=== PATIENT | male | born 1970 | race Caucasian/White ===

== ENCOUNTER 2016-08-03 13:19 | Inpatient (IN) ==
[2016-08-03] MEDS ORDERED: NS 1,000 ML IV PRN (13:24)
[2016-08-03 13:58] LABS: BASO% 0.7 % (0.0-0.8); EOS% 2.8 % (0.0-10.0); HEMATOCRIT 22.2 % (42.0-52.0); IMM GRAN# 0.03 X1000 (0.0-0.04); IMM GRAN% 0.4 % (0.0-0.5); LYMPH# 1.87 X1000 (1.2-3.4); MANUAL DIFF NEEDED? NO; MCV 70.5 FL (81-99); MONO% 8.4 % (1.7-9.3); MPV 10.6 FL (7.4-10.4); NEUT% 61.7 % (42.2-75.2); PLT 388 X1000 (130-400); RBC 3.15 XMIL (4.7-6.1)
[2016-08-03 14:09] LABS: AGAP 12; ALKALINE PHOSPHATASE 88 U/L (32-122); BUN 16 mg/dL (8-22); CALCIUM 8.9 mg/dL (8.8-10.2); CHLORIDE 100 mmol/L (98-107); COSMO 274; GOT 18 U/L (10-34); GPT 14 U/L (10-44); POTASSIUM 3.7 mmol/L (3.5-5.1); SODIUM 136 mmol/L (136-145); TCO2 24 mmol/L (25-35); TOTAL BILIRUBIN < 0.15 mg/dL (0.20-1.00); TOTAL PROTEIN 7.3 g/dL (6.3-8.3)
--- NOTE | 2016-08-03 14:19 | PROVIDER DOCUMENTATION ---
HPI-Abdominal Pain/GI Problem - General Chief Complaint: Return/Recheck Stated Complaint: ABNORMAL LAB VALUES Time Seen by Provider: 08/03/16 13:38 Source: patient, family Allergies/Adverse Reactions: Patient Allergies Allergy/AdvReac Type Severity Reaction Status Date / Time morphine AdvReac VOMITING Verified 07/31/16 15:08 Home Medications: Home Medication List Medication Instructions Recorded Confirmed Last Taken Type Dextroamphetamine/Amphetamine 30 mg PO BID 07/31/16 07/31/16 08/02/16 History [Adderall 30 mg Tablet] Escitalopram [Lexapro] 20 mg PO DAILY 07/31/16 07/31/16 08/02/16 History Pantoprazole Sodium 40 mg PO DAILY 07/31/16 07/31/16 08/02/16 History Sucralfate [Sucralfate] 1 gm PO DAILY 07/31/16 07/31/16 08/02/16 History Sumatriptan Succinate [Sumatriptan 100 mg PO PRN PRN 07/31/16 07/31/16 08/02/16 History Succinate] Eszopiclone [Lunesta] 1 tab PO PRN 08/03/16 08/03/16 08/01/16 History Lorazepam [Ativan] 1 tab PO TID PRN 08/03/16 08/03/16 08/03/16 History Pramipexole Di-HCl [Mirapex ER] 1 tab PO DAILY 08/03/16 08/03/16 08/02/16 History Tadalafil [Cialis] 1 tab PO DAILY 08/03/16 08/03/16 08/02/16 History Tamsulosin [Flomax] 1 tab PO DAILY 08/03/16 08/03/16 08/02/16 History - History of Present Illness-ABD Nature of Presenting Problems: 46 year old WM presents with c/o weakness/fatigue/shortness of breath with fatigue for 1 week. pt reports intermittent rectal bleeding with straining only , intermittently for over a year. pt reports he was evaluated by his PMD for this and has follow up scheduled with Dr. Holt this week, however, they will not see him until he has had transfusion. Pt was evaluated in the ED on for same, refused admission. pt denies abd/rectal pain. he reports he has not had blood in his stools for 3 weeks. he reports 3 weeks ago he was straining very hard and "bleed alot" for 2 days. Abdominal Pain Onset Location: denies: RUQ, LUQ, RLQ, LLQ, epigastric, periumbilical, suprapubic, generalized abdomen, flank, unknown, other Pain Radiation: denies: no radiation, RUQ, LUQ, RLQ, LLQ, epigastric, periumbilical, flank, groin, scapula, shoulder, chest, back, other Quality of Pain: reports: none Review of Systems - Adult - REVIEW OF SYSTEMS - ADULT Constitutional: reports: see HPI, fatique. denies: chills, fever Eyes: reports: no symptoms reported. denies: discharge, blurred vision, double vision, redness Ears, Nose, Mouth & Throat: reports: no symptoms reported. denies: ear discharge, ear pain, nose pain, loose teeth, throat pain, throat swelling Cardiovascular: reports: no symptoms reported. denies: chest pain, palpitations , syncope Respiratory: reports: no symptoms reported. denies: chronic cough, cough, shortness of breath, wheezing Gastrointestinal: reports: see HPI, rectal bleeding. denies: abdominal pain, hematemesis, constipation, diarrhea, difficulty swallowing, frequent heartburn, nausea, poor appetite, vomiting Genitourinary: reports: no symptoms reported. denies: dysuria, hematuria, urgency Musculoskeletal: reports: no symptoms reported. denies: bone pain, joint pain, joint swelling Integumentary: reports: no symptoms reported. denies: hives, itching, skin sores/ulcer Neurological: reports: see HPI, dizziness/vertigo. denies: ataxia Psychiatric: reports: no symptoms reported Endocrine: reports: no symptoms reported. denies: cold intolerance, heat intolerance Hematologic/Lymphatic: reports: see HPI, low blood count Allergic/Immunologic: reports: no symptoms reported. denies: frequent infections All Other Systems: Reviewed and Negative Past History - Adult - PAST MEDICAL HISTORY-ADULT Review of Records: reports: Old Records Reviewed, Nursing Assessment Review, Medications Reviewed, Social history reviewed & non-contributory. Major Childhood Illnesses: reports: denies history Cardiovascular: reports: denies history Respiratory: reports: denies history Gastrointestinal: reports: GERD Obstetrical/Gynecological: reports: denies history Genitourinary: reports: denies history Musculoskeletal: reports: denies history Neurological: reports: denies history Endocrine/Immune: reports: denies history Other Conditions: reports: denies history - IMMUNIZATION STATUS Childhood Immunizations: See Nurse Assessment Flu Vaccine: See Nurse Assessment - FAMILY HISTORY Family History: reviewed, not pertinent Physical Exam-General - PHYSICAL EXAM-ADULT Initial Vital Signs Reviewed: Yes - CONSTITUTIONAL General Appearance: appears well, alert, no apparent distress. negative: mild distress, moderate distress, severe distress, lethargic, slow to respond - EYES Eyes: pale conjunctivae. negative: pink conjunctivae, photophobia, sclera injected, scleral icterus, subconjunctival hemorrhage - HEAD, EARS, NOSE, MOUTH & THROAT HENMT: normocephalic/atraumatic, moist mucous membranes, normal ENT inspection, TMs normal, pharynx normal - NECK Neck: non-tender, full range of motion, supple, normal inspection. negative: C- spine tenderness, limited range of motion, tender lateral, tender midline - RESPIRATORY Respiratory: chest non-tender, lungs clear, normal breath sounds, no pleuratic chest pain, no respiratory distress, no accessory muscle use. negative: respiratory distress, decreased breath sounds, accessory muscle use, crackles, rales, rhonchi, stridor, wheezing - CARDIOVASCULAR Cardiovascular: normal peripheral pulses, regular rate, rhythm, tachycardia - GASTROINTESTINAL (ABDOMEN) Abdominal Exam: normal bowel sounds, non tender, soft, no organomegaly, no pulsatile mass. negative: distended, guarding, rigid, tenderness, hernia, spleenomegaly - GENITOURINARY Rectal Exam: normal exam, normal rectal tone, hemorrhoids. negative: black stool, blood streaked stool, decreased tone, mass, prostate enlarged/nodule, tenderness Hemoccult Exam: heme negative stool - MUSCULOSKELETAL Back Exam: normal inspection, no CVA tenderness, no vertebral tenderness. negative: CVA tenderness, decreased range of motion, swelling, vertebral tenderness Extremity: normal range of motion, non-tender, normal gait, normal inspection, no pedal edema, no calf tenderness, normal capillary refill Peripheral Pulses: radial (R): 3+, radial (L): 3+ - SKIN Integumentary: normal turgor, warm/dry, pallor. negative: normal color - NEUROLOGIC Neurologic: grossly normal, no motor/sensory deficits - PSYCHIATRIC Psych/Mental Status: normal mood/affect, normal thought content, normal thought process, oriented x 3 Progress - PLAN OF CARE/RESULTS Progress/Plan/Lab Results: Vital Signs - 8 hr 08/03/16 13:20 Temperature 97.8 F Pulse Rate 122 H Respiratory Rate 18 Blood Pressure 129/75 O2 Sat by Pulse Oximetry 97 Laboratory Results - last 24 hr 08/03/16 08/03/16 13:35 13:35 WBC 7.18 RBC 3.15 L Hgb 6.0 L Hct 22.2 L MCV 70.5 L MCH 19.0 L MCHC 27.0 L RDW Std Deviation 14.8 H Plt Count 388 MPV 10.6 H Immature Gran % (Auto) 0.4 Neut % (Auto) 61.7 Lymph % (Auto) 26.0 [place] % (Auto) 8.4 Eos % (Auto) 2.8 Baso % (Auto) 0.7 Immature Gran # (Auto) 0.03 Neut # (Auto) 4.43 Lymph # (Auto) 1.87 [place] # (Auto) 0.60 H Eos # (Auto) 0.20 Baso # (Auto) 0.05 Sodium 136 Potassium 3.7 Chloride 100 Carbon Dioxide 24 L Anion Gap 12 BUN 16 Creatinine 0.9 Estimated GFR/1.73 m2 > 60 BUN/Creatinine Ratio 18 Glucose 107 H Calculated Osmolality 274 Calcium 8.9 Total Bilirubin < 0.15 L AST 18 ALT 14 Alkaline Phosphatase 88 Total Protein 7.3 Albumin 4.0 Globulin 3.0 Albumin/Globulin Ratio 1.0 Orders Category Date Time Status Orthostatic Vital Signs NOW Care 08/03/16 13:40 Active Saline Loc DIRECTED Care 08/03/16 13:24 Active Transfuse .Give-Transfuse Care 08/03/16 14:12 Ordered FLAT/UPRIGHT ABD/1 VIEW CHEST [RAD] Stat Exams 08/03/16 13:41 Taken CBC WITH ELECTRONIC DIFF [HEME] Stat Lab 08/03/16 13:35 Completed COMPREHENSIVE METABOLIC PANEL [CHEM] Stat Lab 08/03/16 13:35 Completed OCCULT BLOOD NON-FECES PL Stat Lab 08/03/16 13:24 Uncollected OCCULT BLOOD SCREEN STOOL PL Stat Lab 08/03/16 13:24 Uncollected PRBC [LRPC (RED CELLS)] [BBK] Stat Lab 08/03/16 14:13 Ordered PROTIME WITH INR PL [COAG] Stat Lab 08/03/16 13:[address] [COAG] Stat Lab 08/03/16 13:35 Received UA NIMS W/REFLEX CULT PL [URINALYSIS] Stat Lab 08/03/16 13:40 Ordered 0.9% Sodium Chloride Inj [Ns] 1,000 ml Med 08/03/16 13:24 Active IV 125 mls/hr EKG [EKG] Stat Ther 08/03/16 13:40 Ordered Reviewed labs, radiology, H&P with Dr. Teague, agrees with plan of care/ treatment. Laboratory Tests 08/03/16 08/03/16 08/03/16 13:35 13:35 13:35 WBC 7.18 RBC 3.15 L Hgb 6.0 L Hct 22.2 L MCV 70.5 L MCH 19.0 L MCHC 27.0 L RDW Std Deviation 14.8 H Plt Count 388 MPV 10.6 H Immature Gran % (Auto) 0.4 Neut % (Auto) 61.7 Lymph % (Auto) 26.0 [place] % (Auto) 8.4 Eos % (Auto) 2.8 Baso % (Auto) 0.7 Immature Gran # (Auto) 0.03 Neut # (Auto) 4.43 Lymph # (Auto) 1.87 [place] # (Auto) 0.60 H Eos # (Auto) 0.20 Baso # (Auto) 0.05 PT 13.5 INR 1.00 APTT (Factor Assay) 31.4 Sodium 136 Potassium 3.7 Chloride 100 Carbon Dioxide 24 L Anion Gap 12 BUN 16 Creatinine 0.9 Estimated GFR/1.73 m2 > 60 BUN/Creatinine Ratio 18 Glucose 107 H Calculated Osmolality 274 Calcium 8.9 Total Bilirubin < 0.15 L AST 18 ALT 14 Alkaline Phosphatase 88 Total Protein 7.3 Albumin 4.0 Globulin 3.0 Albumin/Globulin Ratio 1.0 Urine Color Urine Clarity Urine pH Ur Specific [place] Urine Protein Urine Ketones Urine Blood Urine Nitrite Urine Bilirubin Urine Urobilinogen Urine WBC Urine Glucose Stool Occult Blood 08/03/16 08/03/16 14:25 14:25 WBC RBC Hgb Hct MCV MCH MCHC RDW Std Deviation Plt Count MPV Immature Gran % (Auto) Neut % (Auto) Lymph % (Auto) [place] % (Auto) Eos % (Auto) Baso % (Auto) Immature Gran # (Auto) Neut # (Auto) Lymph # (Auto) [place] # (Auto) Eos # (Auto) Baso # (Auto) PT INR APTT (Factor Assay) Sodium Potassium Chloride Carbon Dioxide Anion Gap BUN Creatinine Estimated GFR/1.73 m2 BUN/Creatinine Ratio Glucose Calculated Osmolality Calcium Total Bilirubin AST ALT Alkaline Phosphatase Total Protein Albumin Globulin Albumin/Globulin Ratio Urine Color YELLOW Urine Clarity CLEAR Urine pH 6.5 Ur Specific [place] 1.015 Urine Protein TRACE A Urine Ketones TRACE Urine Blood NEGATIVE Urine Nitrite NEGATIVE Urine Bilirubin NEGATIVE Urine Urobilinogen NORMAL Urine WBC 1+ A Urine Glucose NEGATIVE Stool Occult Blood NEGATIVE Orders Category Date Time Status Orthostatic Vital Signs NOW Care 08/03/16 13:40 Active Saline Loc DIRECTED Care 08/03/16 13:24 Active Transfuse .Give-Transfuse Care 08/03/16 14:12 Active FLAT/UPRIGHT ABD/1 VIEW CHEST [RAD] Stat Exams 08/03/16 13:41 Completed CBC WITH ELECTRONIC DIFF [HEME] Stat Lab 08/03/16 13:35 Completed COMPREHENSIVE METABOLIC PANEL [CHEM] Stat Lab 08/03/16 13:35 Completed OCCULT BLOOD NON-FECES PL Stat Lab 08/03/16 14:29 Ordered OCCULT BLOOD SCREEN STOOL PL Stat Lab 08/03/16 14:25 Completed PRBC [LRPC (RED CELLS)] [BBK] Stat Lab 08/03/16 13:[address] Received [address]IME WITH INR PL [COAG] Stat Lab 08/03/16 13:[address] [COAG] Stat Lab 08/03/16 13:35 Completed TYPE & SCREEN [BBK] Stat Lab 08/03/16 13:35 Received UA NIMS W/REFLEX CULT PL [URINALYSIS] Stat Lab 08/03/16 14:25 Results 0.9% Sodium Chloride Inj [Ns] 1,000 ml Med 08/03/16 13:24 Active IV 125 mls/hr EKG [EKG] Stat Ther 08/03/16 13:40 Ordered Vital Signs - 24 hr 08/03/16 13:20 Temperature 97.8 F Pulse Rate 122 H Respiratory Rate 18 Blood Pressure 129/75 O2 Sat by Pulse Oximetry 97 Laboratory Tests 08/03/16 08/03/16 08/03/16 13:35 13:35 13:35 WBC 7.18 RBC 3.15 L Hgb 6.0 L Hct 22.2 L MCV 70.5 L MCH 19.0 L MCHC 27.0 L RDW Std Deviation 14.8 H Plt Count 388 MPV 10.6 H Immature Gran % (Auto) 0.4 Neut % (Auto) 61.7 Lymph % (Auto) 26.0 [place] % (Auto) 8.4 Eos % (Auto) 2.8 Baso % (Auto) 0.7 Immature Gran # (Auto) 0.03 Neut # (Auto) 4.43 Lymph # (Auto) 1.87 [place] # (Auto) 0.60 H Eos # (Auto) 0.20 Baso # (Auto) 0.05 PT 13.5 INR 1.00 APTT (Factor Assay) 31.4 Sodium 136 Potassium 3.7 Chloride 100 Carbon Dioxide 24 L Anion Gap 12 BUN 16 Creatinine 0.9 Estimated GFR/1.73 m2 > 60 BUN/Creatinine Ratio 18 Glucose 107 H Calculated Osmolality 274 Calcium 8.9 Total Bilirubin < 0.15 L AST 18 ALT 14 Alkaline Phosphatase 88 Total Protein 7.3 Albumin 4.0 Globulin 3.0 Albumin/Globulin Ratio 1.0 Urine Color Urine Clarity Urine pH Ur Specific [place] Urine Protein Urine Ketones Urine Blood Urine Nitrite Urine Bilirubin Urine Urobilinogen Urine WBC Urine Glucose Stool Occult Blood Blood Type Crossmatch 08/03/16 08/03/16 08/03/16 13:35 14:25 14:25 WBC RBC Hgb Hct MCV MCH MCHC RDW Std Deviation Plt Count MPV Immature Gran % (Auto) Neut % (Auto) Lymph % (Auto) [place] % (Auto) Eos % (Auto) Baso % (Auto) Immature Gran # (Auto) Neut # (Auto) Lymph # (Auto) [place] # (Auto) Eos # (Auto) Baso # (Auto) PT INR APTT (Factor Assay) Sodium Potassium Chloride Carbon Dioxide Anion Gap BUN Creatinine Estimated GFR/1.73 m2 BUN/Creatinine Ratio Glucose Calculated Osmolality Calcium Total Bilirubin AST ALT Alkaline Phosphatase Total Protein Albumin Globulin Albumin/Globulin Ratio Urine Color YELLOW Urine Clarity CLEAR Urine pH 6.5 Ur Specific [place] 1.015 Urine Protein TRACE A Urine Ketones TRACE Urine Blood NEGATIVE Urine Nitrite NEGATIVE Urine Bilirubin NEGATIVE Urine Urobilinogen NORMAL Urine WBC 1+ A Urine Glucose NEGATIVE Stool Occult Blood NEGATIVE Blood Type B POSITIVE Crossmatch See Detail Orders Category Date Time Status Admit - [facility] Routine AdmDCTranf 08/03/16 15:21 Ordered Call Admitting on Arrival AT ADMISSION Care 08/03/16 15:22 Active Orthostatic Vital Signs NOW Care 08/03/16 13:40 Active Saline Loc DIRECTED Care 08/03/16 13:24 Active Telemetry Placement ORDERED Care 08/03/16 15:22 Active Transfuse .Give-Transfuse Care 08/03/16 14:12 Active FLAT/UPRIGHT ABD/1 VIEW CHEST [RAD] Stat Exams 08/03/16 13:41 Completed CBC WITH ELECTRONIC DIFF [HEME] Stat Lab 08/03/16 13:35 Completed COMPREHENSIVE METABOLIC PANEL [CHEM] Stat Lab 08/03/16 13:35 Completed OCCULT BLOOD NON-FECES PL Stat Lab 08/03/16 14:29 Ordered OCCULT BLOOD SCREEN STOOL PL Stat Lab 08/03/16 14:25 Completed PRBC [LRPC (RED CELLS)] [BBK] Stat Lab 08/03/16 13:[address] WITH INR [address] [COAG] Stat Lab 08/03/16 13:[address] [COAG] Stat Lab 08/03/16 13:35 Completed TYPE & SCREEN [BBK] Stat Lab 08/03/16 13:35 Results UA NIMS W/REFLEX CULT PL [URINALYSIS] Stat Lab 08/03/16 14:25 Results 0.9% Sodium Chloride Inj [Ns] 1,000 ml Med 08/03/16 15:21 Ordered IV 100 mls/hr 0.9% Sodium Chloride Inj [Ns] 1,000 ml Med 08/03/16 13:24 Active IV 125 mls/hr Telemetry [OM.EQ] Routine Oth 08/03/16 15:21 Active EKG [EKG] Stat Ther 08/03/16 13:40 Ordered Transfer/Admit Order [TRANSFER] Routine Transfer 08/03/16 15:22 Ordered Vital Signs - 24 hr 08/03/16 13:20 Temperature 97.8 F Pulse Rate 122 H Respiratory Rate 18 Blood Pressure 129/75 O2 Sat by Pulse Oximetry 97 Vital Signs - 24 hr 08/03/16 13:20 08/03/16 16:15 Temperature 97.8 F 98.2 F Pulse Rate 122 H 102 H Respiratory Rate 18 20 Blood Pressure 129/75 111/84 O2 Sat by Pulse Oximetry 97 99 Result Diagrams: 08/03/16 13:35 08/03/16 13:35 - XRAY 1 XRAY Study: Chest, Abdomen Impression: Normal (no definite acute abnormality. per Dr. Osman) - CONSULTS/PCP/HOSPITALIST Notification #1 *Consult/PCP/Hospitalist*: Dr. Robbins Time Discussed: 15:21 Reason/Comments: GIB/Anemia Consult Disposition: Admit Departure - Departure Date of Disposition Decision: 08/03/16 Time of Disposition Decision: 15:25 DIAGNOSIS: Anemia Qualifiers: Anemia type: iron deficiency Iron deficiency anemia type: chronic blood loss Qualified Code(s): D50.0 - Iron deficiency anemia secondary to blood loss ( chronic) GIB (gastrointestinal bleeding) Qualifiers: GI bleed type/associated pathology: unspecified gastrointestinal hemorrhage type Qualified Code(s): K92.2 - Gastrointestinal hemorrhage, unspecified Disposition: ADMITTED INPATIENT 09 Certified Medical Emergency: Emergent Condition: Stable - Critical Care Note This patient required my direct & personal management of CC.: No Attestation - Physician/ LUCIE Attestation Patient care was provided by Advanced Practice Provider:: Yes Advanced Practice Provider:: Sonu Atkins Advanced Practice Provider documentation review:: The Mid-level provider documentation, treatment plan and medical decision making was reviewed by the physician who agrees with all treatment and medical decision making by the P.
[2016-08-03 14:20] LABS: PROTIME 13.5 Seconds (12.1-15.5)
[2016-08-03 14:21] LABS: PTT PL 31.4 Seconds (22.6-43.9)
--- NOTE | 2016-08-03 14:24 | Diag Imaging Result Doc PS360 ---
EXAM: FLAT/UPRIGHT ABD/1 VIEW CHEST HISTORY: GIB TECHNIQUE: Three views COMPARISON: None. FINDINGS: The lungs are well expanded. No pneumonia. Cardiomegaly. No free air beneath the diaphragm. No bowel obstruction. No organomegaly. There is been prior surgery to the lower lumbar spine. No abnormal calcifications. IMPRESSION: No definite acute abnormality. Electronically signed by Seamus Osman 08/03/2016 2:22 PM
[2016-08-03 14:31] LABS: URINE CULTURE PL NEEDED? NO
[2016-08-03 14:43] LABS: BILIRUBIN URINE NEGATIVE (NEGATIVE); BLOOD URINE NEGATIVE (NEGATIVE); CLARITY CLEAR (CLEAR); COLOR YELLOW; GLUCOSE URINE NEGATIVE (NEGATIVE); LEUKOCYTES URINE 1+ (NEGATIVE); NITRITE URINE NEGATIVE (NEGATIVE); PH URINE 6.5; PROTEIN URINE TRACE mg/dL (NEGATIVE); SP GRAVITY URINE 1.015; UROBILINOGEN URINE NORMAL
[2016-08-03 14:46] LABS: OCCULT BLOOD 1 NEGATIVE (NEGATIVE)
--- NOTE | 2016-08-03 15:08 | ED EKG INTERP ---
This chart was entered by Shima Arguello Scribe, acting as scribe for Martin Teague MD. EKG Interpretation - EKG Time of EKG reading by physician:: 14:30 EKG Read and Signed by:: Martin Teague EKG Interpretation (*Must complete 3 of following elements*): Normal Rate: 99 Rhythm: normal sinus rhythm Comments: normal ECG This chart was documented by the indicated scribe, (Shima Arguello Scribe) and accurately reflects the services I performed and decisions made by caHo W. Larry, MD, as attested by the provider's signature.
[2016-08-03] MEDS ORDERED: NS 1,000 ML IV ONE (15:21)
[2016-08-03 15:24] LABS: URINE EPITHELIAL CELLS <10 /HPF (<10); URINE SOURCE CLEAN CATCH; URINE WBC <10 /HPF (<10)
--- NOTE | 2016-08-03 16:06 | EKG Report ---
Test Performed on : 08/03/2016 2:30:25 PM Test Reason : CP Blood Pressure : / mmHG Vent. Rate : 099 BPM Atrial Rate : 099 BPM P-R Int : 132 ms QRS Dur : 082 ms QT Int : 344 ms P-R-T Axes : 061 -06 031 degrees QTc Int : 441 ms Normal sinus rhythm. Normal ECG No previous ECGs available Unconfirmed Result
[2016-08-03] MEDS ORDERED: ATIVAN PO PRN (19:04)
[2016-08-03] MEDS ORDERED: LUNESTA PO PRN (19:04)
[2016-08-03] MEDS ORDERED: TYLENOL PO ONE (20:59)
[2016-08-03] MEDS ORDERED: VICON-C PO SCH (21:00)
[2016-08-03] MEDS ORDERED: PATIENT'S OWN MED PO SCH (21:00)
[2016-08-03] MEDS ORDERED: FERROUS SULFATE PO SCH (21:00)
[2016-08-03] MEDS ORDERED: LEXAPRO PO SCH (21:00)
[2016-08-03] MEDS ORDERED: FLOMAX PO SCH (21:00)
[2016-08-03] MEDS ORDERED: BENADRYL PO ONE (21:03)
[2016-08-03] MEDS: ADDERALL PO SCH (21:29)
--- NOTE | 2016-08-03 21:45 | HISTORY AND PHYSICAL ---
CHIEF COMPLAINT: Weakness, fatigue, shortness of breath. HISTORY OF PRESENT ILLNESS: This is a 46-year-old male who presented to the emergency room complaining of weakness, fatigue, shortness of breath for a week. He was evaluated in the emergency room on the and at that time was found to have a hemoglobin of 5 and hematocrit 19.3. Admission orders were placed and blood was ordered but the patient refused. He did leave AMA at this time. He attempted to see Dr. Kelsey who stated reportedly would not see him until he was transfused. He returns today and is noted to have a hemoglobin, hematocrit 6 and 22.2. Obtaining a history is quite difficult from him as he is not consistent. According to the chart, he told the ER physician that he has had intermittent rectal bleeding for over a year. He states that when he presented to the emergency room on the he had episodes of bleeding that he had to flush the toilet 3 times during 1 episode. This has not been worked up previously. He has never been told that he has had hemorrhoids. He does not take aspirin or NSAIDs. He states for about the last 6 months he has had shortness of breath going up stairs. He has to rest, he becomes very short of breath over the last few weeks getting ready for work wears him out and he has to rest before going to work. PAST MEDICAL HISTORY: Hypertension, gastroesophageal reflux disease, alcohol use. PAST SURGICAL HISTORY: Back surgery, bilateral knee surgeries. SOCIAL HISTORY: He smokes about half a pack a day. He drinks 3-4 fire balls every night to rest. He denies illicit drug use. ALLERGIES: Benadryl which causes restless leg syndrome and morphine which causes vomiting. HOME MEDICATIONS: Carafate 1 g daily, Adderall 30 mg daily, Lexapro 20 mg at bedtime, Flomax 0.4 at bedtime, Cialis p.r.n., Mirapex ER 1-2 tabs at bedtime, iron at bedtime, Lunesta 3-6 mg at bedtime p.r.n. REVIEW OF SYSTEMS: A 14 point review of systems is discussed with patient with pertinent positives stated in the HPI. He denied chest pain, palpitations, syncope, dizziness, any fever, chills, recent weight loss or weight gain, PND, orthopnea, nausea, vomiting, diarrhea, constipation, black or bloody vomitus, hematuria, dysuria, frequency, urgency. PHYSICAL EXAMINATION: GENERAL: This is a 46-year-old male who is sitting in the bed in no distress. VITAL SIGNS: Blood pressure is 111/84 with a heart rate of 100, respirations are 20, temperature is 98.2 degrees oral with room air saturations 99%. CARDIOVASCULAR: Regular rate and rhythm S1, S2 appreciated. PULMONARY: Breath sounds are clear. No increased work of breathing noted. GASTROINTESTINAL: Abdomen is soft, nontender, nondistended with bowel sounds in all 4 quadrants. BACK: No CVAT. No spine tenderness. MUSCULOSKELETAL: Good range of motion joints. EXTREMITIES: No clubbing, cyanosis, or edema. Calves nontender. Pulses are palpable x4. NEUROLOGIC: He is alert and oriented x3 with cranial nerves 2-12 grossly intact. DIAGNOSTICS: WBC is 7.18 with hemoglobin 6, hematocrit 22.2 and platelets of 388,000. Sodium is 136, potassium 3.7, BUN 16, creatinine 0.9, glucose of 107. Occult stool is negative. ASSESSMENT AND PLAN: 1. Gastrointestinal bleed. Patient will receive 2 units of packed cells. We will trend his labs. We will Hemoccult any stools. Will start IV Protonix, Carafate every 6 hours. 2. Hypertension. Patient currently receiving no medications, we will trend his vital signs and if needed will start antihypertensives. 3. Chronic pain. We will continue his medications as appropriate. 4. Restless legs syndrome. We will continue his Mirapex. 5. Anemia presumed from blood loss. We will transfuse and continue iron 6. Alcohol use - monitor for signs of withdrawl/DTs 7.. Deep vein thrombosis prophylaxis. Will use SCDs and GI prophylaxis of course Protonix. Further treatments pending hospital course. Dictated by TONIE Billingsley for Ger Robbins MD cc: TONIE Billingsley MD [facility]
[2016-08-03] MEDS: PROTONIX PO SCH (21:48)
[2016-08-04 06:01] LABS: HEMATOCRIT 27.4 % (42.0-52.0); HEMOGLOBIN 7.9 g/dL (14.0-18.0); MCH 20.8 PG (27-31); MCHC 28.8 g/dL (33-37); MCV 72.3 FL (81-99); MPV 11.3 FL (7.4-10.4); RBC 3.79 XMIL (4.7-6.1)
[2016-08-04 06:07] LABS: AGAP 12; ALBUMIN 3.8 g/dL (3.5-5.0); ALKALINE PHOSPHATASE 83 U/L (32-122); BUN 15 mg/dL (8-22); CALCIUM 8.6 mg/dL (8.8-10.2); CHLORIDE 101 mmol/L (98-107); COSMO 272; GOT 22 U/L (10-34); GPT 13 U/L (10-44); POTASSIUM 4.2 mmol/L (3.5-5.1); SODIUM 136 mmol/L (136-145); TCO2 24 mmol/L (25-35); TOTAL PROTEIN 6.5 g/dL (6.3-8.3)
[2016-08-04] MEDS ORDERED: PATIENT'S OWN MED PO SCH (09:00)
[2016-08-04] MEDS ORDERED: CARAFATE PO SCH (09:00)
[2016-08-04] MEDS: ADDERALL PO SCH (09:09)
[2016-08-04] MEDS: PROTONIX PO SCH ×2 (09:09→11:29)
[2016-08-04 11:20] VITALS: BP 118/80
--- NOTE | 2016-08-20 09:34 | DISCHARGE SUMMARY ---
ADMISSION DATE: 08/03/2016 DISCHARGE DATE: 08/04/2016 DIAGNOSES: 1. Gastrointestinal bleed. 2. Hypertension. 3. Chronic pain. 4. Restless leg syndrome. 5. Anemia presumed from blood loss. 6. Alcohol use and abuse. DIAGNOSTICS: 08/03/2016: Abdominal x-ray revealed no definite acute abnormality. HOSPITAL COURSE: Mr. Angeles presented to the emergency room with weakness, fatigue and shortness of breath. He was found to have a hemoglobin and hematocrit of 6 and 22.2 respectively. He stated that he had intermittent rectal bleeding for over a year, stating that he has had dyspnea on exertion intermittently over the last 6 months. He has not been evaluated by physician, although he was seen in the ER on July 31 for reported abnormal labs Repeat labs revealed hemoglobin and hematocrit of 5.4 and 19.3. He was in the process of being admitted to the hospital and he decided to leave AMA stating he had stuff to do at home. He then returned on the lfth with increased bleeding, being found to have a hemoglobin and hematocrit of 6 and 22. He was transfused 3 units of packed cells. Of note, his stool was occult negative while in the hospital, and he stated he had not had any black or red stools while in the hospital. We did continue his home medications as appropriate. DISCHARGE PHYSICAL EXAMINATION: Cardiovascular: Regular rate and rhythm. S1, S2 appreciated. Pulmonary: Breath sounds are clear. No increased work of breathing noted. Gastrointestinal: Abdomen is soft, nontender, nondistended with bowel sounds in all 4 quadrants. Neurologic: He is alert and oriented x3 with cranial nerves 2-12 grossly intact. DISCHARGE MEDICATIONS: 1. Protonix 40 mg p.o. b.i.d. 2. Carafate 1 g 4 times a day. 3. Iron 27 mg at bedtime. 4. Flomax 0.4 at bedtime. 5. Cialis 5 mg daily. 6. Mirapex 1-2 tabs at bedtime. 7. Ativan 1 tab p.o. t.i.d. p.r.n. 8. Lunesta 3 mg at bedtime. 9. Adderall 30 mg b.i.d. DISCHARGE VITAL SIGNS: Blood pressure is 118/80 with a heart rate of 84, respirations are 18, temperature 97.7 degrees with room air saturations of 98% to 99%. DISCHARGE FOLLOW UP: 1. An appointment was made with Dr. Kelsey for 08/26/2016 at 9 a.m. 2. He was instructed to call to be seen sooner or return to the emergency room for returning chest pain, shortness of breath, dyspnea on exertion, black or bloody stools , or any questions or concerns that he may have. He is being discharged home in stable condition with family members. Dictated by TONIE Billingsley for Ger Robbins MD cc: TONIE Billingsley MD MTDD
== END 2016-08-04 14:35 | disposition home or self-care (01) ==
LOC: P.ED 13:19 → P.MEDSURG 13:20
PROVIDERS: ATTEND Family Medicine